=== PATIENT | male | born 1970 | race Caucasian/White ===

== ENCOUNTER 2021-01-15 10:12 | Emergency (ER) | payer OTHER ==
[2021-01-16 08:06] LABS: SARS-CoV-2 NAA Not Detected (Not Detected)
== END 2021-01-15 12:20 | disposition home or self-care (01) ==
LOC: JVIRT 10:12
DX: Z11.52 Encounter for screening for COVID-19 (principal)
CPT/HCPCS: C9803; G2251-GT; Q3014-GT; U0003; U0005

== ENCOUNTER 2021-03-06 15:07 | Emergency (ER) | payer OTHER | END 2021-03-06 16:29 | disposition home or self-care (01) | LOC: JVIRT 15:07 | DX: Z11.52 Encounter for screening for COVID-19 (principal) | CPT/HCPCS: G2251-GT; Q3014-GT ==